=== PATIENT | female | born 1965 | race Caucasian/White ===

== ENCOUNTER 2016-12-26 04:55 | Emergency (ER) | payer OTHER ==
[~2016-12-26] VITALS: Ht 165.1 cm; Wt 59.0 kg
[2016-12-26 05:10] VITALS: BP 119/76
[2016-12-26] MEDS ORDERED: ZOLOFT25 MG ORAL (05:10)
[2016-12-26 06:53] LABS: BASOPHILS % (AUTO) 1.2 % (0.0-2.0); EOSINOPHILS % (AUTO) 3.5 % (0.0-3.0); LYMPHOCYTES % (AUTO) 39.5 % (20.0-45.0); MEAN CORPUSCULAR HEMOGLOBIN 30.9 PG (27.0-31.0); MEAN CORPUSCULAR HGB CONC 32.6 G/DL (32.0-36.0); MEAN CORPUSCULAR VOLUME 95 FL (80-99); MEAN PLATELET VOLUME 7.8 FL (6.5-10.1); MONOCYTES % (AUTO) 5.9 % (1.0-10.0); NEUTROPHILS % (AUTO) 49.9 % (45.0-75.0); PLATELET COUNT 309 K/UL (150-450); RED CELL DISTRIBUTION WIDTH 12.2 % (11.6-14.8); WHITE BLOOD COUNT 11.4 K/UL (4.8-10.8)
[2016-12-26 07:12] LABS: ALANINE AMINOTRANSFERASE 7 U/L (3-33); ALBUMIN/GLOBULIN RATIO 1.4 (1.0-2.7); ANION GAP 13 (5-15); ASPARTATE AMINO TRANSFERASE 13 U/L (5-40); CALCIUM 9.4 mg/dL (8.6-10.2); CARBON DIOXIDE 26 mEQ/L (20-30); CHLORIDE 104 mEQ/L (98-107); CREATININE 0.9 mg/dL (0.5-0.9); GLOMERULAR FILTRATION RATE > 60 mL/min (>60); HEMOLYSIS 16; POTASSIUM 4.2 mEQ/L (3.4-4.9); SODIUM 143 mEQ/L (135-145); TOTAL PROTEIN 6.5 g/dL (6.6-8.7)
[2016-12-26 08:15] VITALS: BP 109/67
[2016-12-26 09:15] VITALS: BP 109/67
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
== END 2016-12-26 08:15 | disposition home or self-care (01) ==
LOC: EMR 05:24
DX: M25.512 Pain in left shoulder (principal); Z88.2 Allergy status to sulfonamides
CPT/HCPCS: 36415; 80053; 85025; 96374

== ENCOUNTER → 2017-02-12 | Emergency (ER) | payer OTHER ==
[~2017-02-12] MED LIST: AUGMENTIN 875-1 EAC1 ORAL; IBUPROFEN600 MG ORAL; ZOLOFT25 MG ORAL
== END | disposition left against medical advice (07) ==
LOC: EMR 21:42
DX: Z53.21 Procedure and treatment not carried out due to patient leaving prior to being seen by health care provider (principal)

== ENCOUNTER 2017-02-13 04:50 | Emergency (ER) | payer OTHER ==
[~2017-02-13] VITALS: Ht 165.1 cm; Wt 59.0 kg
[~2017-02-13 04:50] MED LIST changes: -AUGMENTIN 875-1 EAC1 ORAL; -IBUPROFEN600 MG ORAL
[2017-02-13 05:00] VITALS: BP 122/78
[2017-02-13] MEDS ORDERED: TdaP Vaccine 0.5ml Syr IM ONE (05:15)
[2017-02-13] MEDS ORDERED: Ketorolac 60mg Inj IM ONE (05:15)
[2017-02-13] MEDS ORDERED: Augmentin 875mg Tab ORAL ONE (05:15)
[2017-02-13] MEDS ORDERED: IBUPROFEN600 MG ORAL (05:16)
[2017-02-13] MEDS ORDERED: AUGMENTIN 875-1 EAC1 ORAL (05:16)
[2017-02-13 06:50] VITALS: BP 118/76
--- NOTE | 2017-02-13 20:23 | Emergency Room Report ---
History of Present Illness General Chief Complaint: Animal Bite Source: Patient Present Illness HPI Patient is a 51-year-old female who presented after having increased pain to her right buttock as well as to her upper extremities. The patient reported having recently been bitten by a dog. Patient stated she had increased pain as well as difficulty sitting. She had not been previously seen. She reports having no recent tetanus vaccine. She had not been taking antibiotics. She denied any wound dischargeShe had been ambulatory. Allergies: Coded Allergies: SULFA (SULFONAMIDE ANTIBIOTICS) (Verified Allergy, Unknown, 12/26/16) Patient History Past Medical History: see triage record Last Menstrual Period: NOT ANYMORE Reviewed Nursing Documentation: PMH: Agreed, PSxH: Agreed Review of Systems All Other Systems: negative except mentioned in HPI Physical Exam Vital Signs Date Time Temp Pulse Resp B/P Pulse Ox O2 Delivery O2 Flow Rate FiO2 02/13/17 04:54 98.2 75 18 120/75 98 Room Air General Appearance: well appearing, no apparent distress, alert, GCS 15 Head: normocephalic, atraumatic ENT: hearing grossly normal, normal voice Neck: full range of motion, supple Respiratory: no respiratory distress, speaking full sentences Gastrointestinal: normal inspection, normal bowel sounds Musculoskeletal: no calf tenderness, swelling - bruising, several days old to right buttock with partially healed laceration about 2 cm without warmth or swelling. , other - small puncture to right upper extremitiy Neurologic: alert, oriented x3, responsive, slime plant operator helper III-XII nml as tested, motor strength/tone normal, normal gait Psychiatric: mood/affect normal Medical Decision Making Diagnostic Impression: Primary Impression: Bite by animal Additional Impression: Traumatic hematoma of buttock ER Course Patient presented after animal bite. Differential diagnosis included was not limited to infection laceration, hematoma, foreign body among others. Patient's benign exam and does not appear to require any further imaging or laboratory testing at this time. This was did not appear to be definitely infected however since this is a dog bite patient will be given antibiotics. Patient given oral antibiotics as well as prescription for antibiotics. The patient is advised to follow up with primary care doctor in 2- 3day for wound recheck. Patient is advised to return if any worsening condition or if any changes in status that are concerning. Last Vital Signs Date Time Temp Pulse Resp B/P Pulse Ox O2 Delivery O2 Flow Rate FiO2 02/13/17 06:50 98.2 79 16 118/76 100 Room Air Status: improved Disposition: HOME, SELF-CARE Condition: Stable Scripts Ibuprofen* (MOTRIN*) 600 Mg Tablet 600 MG ORAL Q8H Y for For Pain, #30 TAB 0 Refills Prov: Getachew Cardozo 02/13/17 Amoxicillin/Potassium Clav 875-125* (AUGMENTIN 875-125 TABLET*) 1 Each Tablet 1 TAB ORAL TWICE A DAY, #14 TAB Prov: Getachew Cardozo 02/13/17 Referrals: [facility]ERR[facility] (PCP) Patient Instructions: Animal Bite Getachew Cardozo Feb 13, 2017 20:23
== END 2017-02-13 06:50 | disposition home or self-care (01) ==
LOC: EMR 05:02
DX: S31.815A Open bite of right buttock, initial encounter (principal); Z23 Encounter for immunization; Z88.2 Allergy status to sulfonamides; S30.0XXA Contusion of lower back and pelvis, initial encounter; W54.0XXA Bitten by dog, initial encounter; Y92.9 Unspecified place or not applicable; Y99.8 Other external cause status
CPT/HCPCS: 90471; 90715; 96372; 99284

== ENCOUNTER 2017-03-25 13:51 | Emergency (ER) | payer OTHER ==
[~2017-03-25] VITALS: Ht 165.1 cm; Wt 59.0 kg
[~2017-03-25 13:51] MED LIST changes: +AUGMENTIN 875-1 EAC1 ORAL; +IBUPROFEN600 MG ORAL
[2017-03-25 14:18] VITALS: BP 108/71
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
[2017-03-25] MEDS ORDERED: Bicillin LA 2,400,000 units IM ONE (14:30)
[2017-03-25] MEDS ORDERED: ACETAMINOPHEN-1 EAC1 ORAL (14:48)
[2017-03-25 14:53] VITALS: BP 108/71
== END 2017-03-25 15:07 | disposition home or self-care (01) ==
LOC: EMR 14:42
DX: K02.9 Dental caries, unspecified (principal); S60.512A Abrasion of left hand, initial encounter; S60.511A Abrasion of right hand, initial encounter; W19.XXXA Unspecified fall, initial encounter; Y92.89 Other specified places as the place of occurrence of the external cause; Z88.2 Allergy status to sulfonamides; Z85.43 Personal history of malignant neoplasm of ovary
CPT/HCPCS: 96372; 99283

== ENCOUNTER 2017-07-02 20:50 | Emergency (ER) | payer OTHER ==
[~2017-07-02] VITALS: Ht 165.1 cm; Wt 49.9 kg
[~2017-07-02 20:50] MED LIST changes: +ACETAMINOPHEN-1 EAC1 ORAL
--- NOTE | 2017-07-02 21:07 | Emergency Room Report ---
History of Present Illness General Chief Complaint: Seizure Source: Patient, EMS Present Illness HPI Is a 51-year-old female with multiple psychiatric problem. She presents with chief complaint of possible seizure. She doesn't remember who called 911. She said she had a seizure. She said she had had a seizure since she was a little kid. He present here in December with a complaint of seizure. There is no trauma. Denies any other complaint. She just started trauma in all and penicillin. This was prescribed at [facility] and a few days ago. Allergies: Coded Allergies: SULFA (SULFONAMIDE ANTIBIOTICS) (Verified Allergy, Unknown, 12/26/16) Patient History Past Medical History: see triage record, old chart reviewed Past Surgical History: other Pertinent Family History: none Social History: Reports: smoking Last Menstrual Period: NONE Now: No Immunizations: other Reviewed Nursing Documentation: PMH: Agreed, PSxH: Agreed Nursing Documentation-PMH Hx Cancer: Yes - OVARIAN Hx Seizures: Yes Review of Systems Eye: Denies: blurred vision, eye pain ENT: Denies: ear pain, nose congestion, throat swelling Respiratory: Denies: cough, shortness of breath Cardiovascular: Denies: chest pain, palpitations Gastrointestinal: Denies: abdominal pain, diarrhea, nausea, vomiting Musculoskeletal: Denies: back pain, joint pain Skin: Denies: rash Neurological: Denies: headache, numbness Endocrine: Denies: increased thirst, increased urine Hematologic/Lymphatic: Denies: easy bruising All Other Systems: negative except mentioned in HPI Physical Exam Vital Signs Date Time Temp Pulse Resp B/P Pulse Ox O2 Delivery O2 Flow Rate FiO2 07/02/17 20:44 97.9 100 18 119/79 97 Room Air vitals normal Sp02 EP Interpretation: reviewed, normal General Appearance: well appearing, no apparent distress, alert, other - Patient appear to be sedated Head: normocephalic, atraumatic Eyes: bilateral eye EOMI, bilateral eye PERRL ENT: hearing grossly normal, normal pharynx Neck: full range of motion, supple, no meningismus Respiratory: chest non-tender, lungs clear, normal breath sounds Cardiovascular #1: regular rate, rhythm, no murmur Gastrointestinal: normal bowel sounds, non tender, no mass, no organomegaly, no bruit, non-distended Musculoskeletal: back normal, gait/station normal, normal range of motion Psychiatric: mood/affect normal Skin: warm/dry Medical Decision Making Diagnostic Impression: Primary Impression: Epileptic seizure, generalized ER Course Patient presents with questionable seizure. This may be metastases induce. May be psychiatric. There is no trauma. No oral trauma. No incontinence of bowel or urine. She has multiple quinn from IV from recent visit to the hospitals. she does not drive. Therefore I see no need to do a DMV report. We' ll discharge home. Last Vital Signs Date Time Temp Pulse Resp B/P Pulse Ox O2 Delivery O2 Flow Rate FiO2 07/02/17 20:44 97.9 100 18 119/79 97 Room Air Status: improved Disposition: HOME, SELF-CARE Condition: Stable Patient Instructions: Seizure, Adult NANCY TAM M.D. Jul 02, 2017 21:07
[2017-07-02 21:14] VITALS: BP 114/64
[2017-07-02 21:32] VITALS: BP 114/64
== END 2017-07-02 21:32 | disposition home or self-care (01) ==
LOC: EDBD 20:50 → EMR 21:05
DX: G40.909 Epilepsy, unspecified, not intractable, without status epilepticus (principal); Z85.43 Personal history of malignant neoplasm of ovary; Z88.2 Allergy status to sulfonamides
CPT/HCPCS: 99283